=== PATIENT | male | born 1970 | race Caucasian/White ===

== ENCOUNTER → 2016-08-06 | Outpatient (CLI) | payer BC | LOC: EXRD 13:00 | DX: E29.1 Testicular hypofunction (principal) | CPT/HCPCS: 77080 ==

== ENCOUNTER → 2020-04-23 | Outpatient (CLI) | payer BC | LOC: DTC 10:03 | DX: E11.9 Type 2 diabetes mellitus without complications (principal) | CPT/HCPCS: G0108 ==